=== PATIENT | male | born 1990 | race American Indian/Alaskan Native ===

== ENCOUNTER 2021-12-08 16:05 | Emergency (ER) | payer SELFPAY ==
[2021-12-08 16:08] VITALS: BP 132/86
[2021-12-08] MEDS ORDERED: dexAMETHasone 20 MG/5 ML VIAL IM ONE (16:56)
[2021-12-08] MEDS ORDERED: ACETAMINOPHEN 325 MG TAB PO ONE (16:57)
[2021-12-08] MEDS ORDERED: AMOXICILLIN/K CLAV 875/125MG TAB PO ONE (16:58)
--- NOTE | 2021-12-08 17:00 | Emergency Department Report ---
HPI - General Chief Complaint: Sore Throat Time Seen by Provider: 12/08/21 16:54 - HPI HPI: 31-year-old -[place] male presents to the emergency department with a complaint of a 2 to 3-day history of a sore throat. It is painful to swallow both liquids and solids. The patient does not want to talk much secondary to pain. He denies any past medical history. He is a tobacco smoker. He has not taken anything for symptoms prior to presentation today. No recent travel or sick contacts at home. ED Past Medical Hx - Past Medical History Previous Medical History?: No - Medications Home Medications: Home Medications Medication Instructions Recorded Confirmed Last Taken Type Amoxicillin/Potassium Clav 1 each PO BID #20 12/08/21 Unknown Rx [Augmentin 875-125 Tablet] ED Review of Systems ROS: Stated complaint: SORE THROAT Other details as noted in HPI Comment: All other systems reviewed and negative Constitutional: chills. denies: malaise Eyes: denies: eye pain, vision change ENT: throat pain. denies: ear pain Respiratory: denies: cough, shortness of breath Cardiovascular: denies: chest pain, palpitations Gastrointestinal: denies: abdominal pain, vomiting Genitourinary: denies: dysuria, discharge Musculoskeletal: denies: back pain, arthralgia Skin: denies: rash, lesions Neurological: denies: headache, weakness Physical Exam - Physical Exam Vital Signs: Vital Signs 12/08/21 16:07 Temperature 100.6 F H Pulse Rate 89 Respiratory 16 Rate Blood Pressure 132/86 [Right] O2 Sat by Pulse 99 Oximetry Physical Exam: GENERAL: The patient is well-developed well-nourished. HENT: Normocephalic. Atraumatic. Patient has moist mucous membranes. No drooling or trismus. Moderate right-sided tonsillar hypertrophy, erythema and exudates. EYES: Extraocular motions are intact. NECK: Supple. Trachea is midline. CHEST/LUNGS: Clear to auscultation. There is no respiratory distress noted. HEART/CARDIOVASCULAR: Regular. There is no tachycardia. There is no murmur. SKIN: Skin is warm and dry. NEURO: The patient is awake, alert, and oriented. The patient is cooperative. MUSCULOSKELETAL: There is no tenderness or deformity. There is no limitation range of motion. ED Course Vital Signs 12/08/21 16:07 Temperature 100.6 F H Pulse Rate 89 Respiratory 16 Rate Blood Pressure 132/86 [Right] O2 Sat by Pulse 99 Oximetry ED Medical Decision Making - Lab Data Lab Results 12/08/21 Range/Units Unknown Group A Strep Rapid Positive A (Negative) - Medical Decision Making Patient presents with a 2-day history of sore throat. On examination he has right-sided tonsillar hypertrophy and exudates. No drooling or trismus. Vital signs reassuring, but the patient did have a low-grade fever. He was positive for strep pharyngitis. Patient was given a shot of Decadron and antibiotics. He was also given a dose of Tylenol. He was able to swallow the medications and water without any difficulty. He will be discharged home with Augmentin. We discussed using Tylenol and ibuprofen as needed for fever or discomfort. He will return to the emergency department with any worsening of his symptoms or with any acute distress. Critical Care Time: No Critical care attestation.: If time is entered above; I have spent that time in minutes in the direct care of this critically ill patient, excluding procedure time. ED Disposition Clinical Impression: Strep pharyngitis Disposition: HOME / SELF CARE / HOMELESS Is pt being admited?: No Condition: Stable Instructions: Strep Throat, Adult Additional Instructions: Please follow-up with a primary care physician in the next few days. Take all medications as prescribed. You can take Tylenol every 4-6 hours and ibuprofen every 6-8 hours, using dosing on the back of the bottle, as needed for fever or discomfort. Return to the emergency department with any worsening of your symptoms, new or concerning symptoms not addressed during this current emergency department visit, or with any acute distress. Prescriptions: Amoxicillin/Potassium Clav [Augmentin 875-125 Tablet] 1 each PO BID #20 Referrals: NORBERTO PRADO MD [Primary Care Provider] - 2-3 Days GISELA BRYANT MD [Staff Physician] - 2-3 Days Time of Disposition: 18:00
== END 2021-12-08 18:29 | disposition home or self-care (01) ==
LOC: ED 16:05
DX: J02.0 Streptococcal pharyngitis (principal)
CPT/HCPCS: 87430; 96372; 99283; J1100